=== PATIENT | male | born 1975 ===

== ENCOUNTER 2021-09-10 15:14 | Inpatient (IN) | payer SELFPAY ==
[~2021-09-10] VITALS: Ht 175.3 cm; Wt 77.1 kg
[2021-09-10 15:25] LABS: HEMOGLOBIN 13.6 gm/dl (14.0-17.5); RED BLOOD COUNT 4.81 M/UL (4.20-5.50); WHITE BLOOD COUNT 8.5 K/UL (4.5-11.0)
[2021-09-10 15:43] LABS: BUN/CREATININE RATIO 12 (0-10)
[2021-09-10] MEDS ORDERED: METOPROLOL TART25 MG PO (18:52)
[2021-09-10] MEDS ORDERED: METFORMIN HCL500 MG PO (18:52)
[2021-09-10] MEDS ORDERED: COZAAR100 MG PO (18:52)
[2021-09-10] MEDS ORDERED: PIOGLITAZONE HC30 MG PO (18:53)
[2021-09-10 23:01] LABS: HEMOGLOBIN 13.1 gm/dl (14.0-17.5); RED BLOOD COUNT 4.66 M/UL (4.20-5.50); WHITE BLOOD COUNT 8.5 K/UL (4.5-11.0)
--- NOTE | 2021-09-11 00:03 | NUR ---
Patient stable upon transfer of care to DEPARTMENT DIRECTOR at [id number]
== END 2021-09-11 03:00 | disposition short-term general hospital (02) | DRG 270 ==
LOC: ER1 15:14 → CDU 15:21 → CCU 15:55
PROVIDERS: Emergency Medicine; Internal Medicine Cardiovascular Disease; ADMIT Internal Medicine Cardiovascular Disease
PROC: 027034Z Dilation of Coronary Artery, One Artery with Drug-eluting Intraluminal Device, Percutaneous Approach (ICD-10-PCS; 2021-09-10)
PROC: 02C03ZZ Extirpation of Matter from Coronary Artery, One Artery, Percutaneous Approach (ICD-10-PCS; 2021-09-10)
PROC: B241ZZ3 Ultrasonography of Multiple Coronary Arteries, Intravascular (ICD-10-PCS; 2021-09-10)
PROC: 5A02210 Assistance with Cardiac Output using Balloon Pump, Continuous (ICD-10-PCS; principal; 2021-09-11)
PROC: 02703ZZ Dilation of Coronary Artery, One Artery, Percutaneous Approach (ICD-10-PCS; 2021-09-11)
PROC: X2CY3T7 Extirpation of Matter from Great Vessel using Computer-aided Mechanical Aspiration, Percutaneous Approach, New Technology Group 7 (ICD-10-PCS; 2021-09-11)
PROC: 3E043XZ Introduction of Vasopressor into Central Vein, Percutaneous Approach (ICD-10-PCS; 2021-09-11)
PROC: 4A023N7 Measurement of Cardiac Sampling and Pressure, Left Heart, Percutaneous Approach (ICD-10-PCS; 2021-09-11)
PROC: B2111ZZ Fluoroscopy of Multiple Coronary Arteries using Low Osmolar Contrast (ICD-10-PCS; 2021-09-11)
PROC: [UNRECOGNIZED PROCEDURE] (2021-09-11)
PROC: B2151ZZ Fluoroscopy of Left Heart using Low Osmolar Contrast (ICD-10-PCS; 2021-09-11)
DX: T82.857A Stenosis of other cardiac prosthetic devices, implants and grafts, initial encounter (principal); I21.19 ST elevation (STEMI) myocardial infarction involving other coronary artery of inferior wall; Z20.822 Contact with and (suspected) exposure to COVID-19; R57.0 Cardiogenic shock; K22.6 Gastro-esophageal laceration-hemorrhage syndrome; I25.5 Ischemic cardiomyopathy; E11.9 Type 2 diabetes mellitus without complications; E78.00 Pure hypercholesterolemia, unspecified; I10 Essential (primary) hypertension; Y83.8 Other surgical procedures as the cause of abnormal reaction of the patient, or of later complication, without mention of misadventure at the time of the procedure; E78.5 Hyperlipidemia, unspecified; I95.9 Hypotension, unspecified; I25.10 Atherosclerotic heart disease of native coronary artery without angina pectoris; Z79.4 Long term (current) use of insulin
CPT/HCPCS: 36415; 71045; 80053; 82550; 82553; 82962; 84484; 85025; 85347; 85610; 85730; 86850; 86900; 86901; 92920; 92973; 92978; 93005; 99152; 99153; 99285; C1725; C1753; C1757; C1769; C1874; C1887; C1894; C9113; J0360; J0461; J1644; J2250; J2370; J2405; J3010; J3246; J7040; Q9965; Q9967